=== PATIENT | male | born 1990 | race Caucasian/White ===

== ENCOUNTER 2024-07-11 06:36 | Inpatient (IN) | payer BC ==
[2024-07-07 14:59] LABS: Urine Bacteria None Seen /hpf (None Seen)
[2024-07-07 15:05] LABS: Urine Blood Negative /uL (Negative); Urine Clarity Clear (Clear); Urine Color Yellow (Yellow); Urine Mucus FEW (None Seen); Urine Protein, UAD TRACE (Negative); Urine Specific Gravity 1.033 (1.001-1.035); Urine Squamous Epithelial Cell FEW /hpf (<5); Urine Urobilinogen 3 mg/dL (Negative); Urine WBC 1 /HPF (0-3); Urine pH 5.5 (5.0-9.0)
[2024-07-07 15:06] LABS: Basophils # (auto) 0.1 10 ^3/uL (0-0.2); Basophils % (auto) 1.1 % (0.0-2.0); Eosinophils # (auto) 0.2 10 ^3/uL (0-0.8); Eosinophils % (auto) 3.2 % (0.0-7.0); Hematocrit 44.5 % (41.0-53.0); Hemoglobin 15.3 g/dL (13.5-17.5); Lymphocytes # (auto) 1.6 10 ^3/uL (0.4-5.4); Lymphocytes % (auto) 26.6 % (10.0-50.0); Mean Corpuscular Hemoglobin 29.9 pg (28.0-32.0); Mean Corpuscular Hgb Conc. 34.4 g/dL (32.0-36.0); Mean Corpuscular Volume 86.9 fL (80.0-100.0); Monocytes # (auto) 0.4 10 ^3/uL (0-1.3); Monocytes % (auto) 6.7 % (0.0-12.0); Neutrophils # (auto) 3.7 10 ^3/uL (1.6-8.6); Neutrophils % (auto) 62.4 % (37.0-80.0); Nucleated Red Blood Cells % 0.2 %; Platelet Count (auto) 269 10^3/uL (140-450); Red Blood Cells 5.12 10^6/uL (4.5-5.90); White Blood Cell 5.9 10^3/uL (4.4-10.8)
[2024-07-07 15:20] LABS: INR 1.01 (0.9-1.15); Partial Thromboplastin Time 31.6 SEC (24.5-34.5); Prothrombin Time 10.7 sec (9.3-11.8)
[2024-07-07 15:30] LABS: Alkaline Phosphatase 69 U/L (46-116); Anion Gap 7 (5-15); Aspartate Aminotransferase 22 U/L (13-40); BUN/Creatinine Ratio 9.2 (10.0-20.0); Blood Urea Nitrogen 10 mg/dL (9-23); Calcium 10.4 mg/dL (8.7-10.4); Carbon Dioxide 29 mmol/L (20-31); Chloride 104 mmol/L (98-107); Potassium 3.8 mmol/L (3.5-5.1); Sodium 140 mmol/L (136-145)
[2024-07-07 15:31] LABS: Bilirubin, Total 0.8 mg/dL (0.2-1.0); Total Protein 7.4 g/dL (5.7-8.2)
[2024-07-07 15:36] LABS: Alanine Aminotransferase 51 U/L (7-40); Glucose 135 mg/dL (74-106)
[~2024-07-11] VITALS: Ht 177.8 cm; Wt 100.7 kg
[2024-07-11] MEDS: CIPROFLOXACIN 400MG/200ML 400 ML IV ONE (06:36)
[2024-07-11] MEDS: ceFAZolin 2 GM/D5W100ml 100 ML IV ONE (06:45)
[2024-07-11] MEDS: LIDOCAINE 4MG/ML IV SOLN 500 ML IV ONE (06:48)
[2024-07-11] MEDS: MAGNESIUM SULFATE 1GM/100ML 100 ML IV ONE (06:48)
[2024-07-11] MEDS: ACETAMINOPHEN IV 100 ML IV ONE (06:48)
[2024-07-11] MEDS: GABAPENTIN 400 MG CAP ONE (06:48)
[2024-07-11] MEDS: LIDOCAINE 2%HCL (LOCAL ANESTH.) INJ 10ml MDV ONE (06:48)
[2024-07-11] MEDS: TRANEXAMIC ACID 20 ML ONE (06:50)
[2024-07-11] MEDS ORDERED: LIDOCAINE 2% TOPICAL JELLY 5 ML URJT TOP ONE (06:58)
[2024-07-11] MEDS: GABAPENTIN 400 MG CAP PO ONE (07:00)
[2024-07-11] MEDS: ACETAMINOPHEN IV 1000 MG/100ML (10MG/ML) IV ONE (07:00)
[2024-07-11] MEDS ORDERED: GLYCOPYRROLATE 0.2 MG/ML 1ML VIAL ONE (07:02)
[2024-07-11] MEDS ORDERED: ONDANSETRON HCL 4 MG/2 ML VIAL ONE (07:02)
[2024-07-11] MEDS ORDERED: ROCURONIUM 10MG/ML 10ML VIAL IV ONE (07:02)
[2024-07-11] MEDS ORDERED: PROPOFOL 10 MG/ML 20 ML IV ONE ×2 (07:02→08:41)
[2024-07-11] MEDS ORDERED: DexAMETHasone SOD PHOS 10MG/1ML VIAL INJ ONE (07:02)
[2024-07-11] MEDS ORDERED: KETAMINE 50mg/ML 1ml syringe ONE ×2 (07:05→07:09)
[2024-07-11] MEDS ORDERED: fentaNYL CITRATE 100 MCG/2 ML VL ONE (07:05)
--- NOTE | 2024-07-11 07:35 | DVHHP2 ---
History Allergies: Coded Allergies: NO KNOWN ALLERGIES (Unverified , 07/07/24) Chief Complaint: Cervical stenosis Present Illness(Onset/Duration Patient experiencing neck left shoulder left arm pain shooting radiculopathies weekend hand Noncontributory Past Surgical History: Other (No prior neck surgeries) Exam Exam General Appearance: Normal HEENT: Normal ENT Inspection Neck: Normal Inspection, Other (Neck pain left shoulder pain present) Respiratory: No Accessory Muscle Use, No Respiratory Distress Cardiovascular: No JVD, Other (Skin pink warm and dry) Gastrointestinal: Other (No complaints of abdominal discomfort nausea vomiting or diarrhea) Extremities: Normal capillary refill, Normal inspection, Normal range of motion, Non-tender Neurologic: Alert, No Motor Deficits, Normal Affect Cerebellar Function: Other (No ambulation issues reported) Skin: Normal Color Plan Additional comments: Patient is arrived for elective spine surgery with Dr. Mahad domingo C5-6, artificial disc arthroplasty The patient was informed of the risks and benefits of the procedure. These include but are not limited to complications of anesthesia, postoperative infection, incomplete relief of symptoms, recurrence of symptoms, damage to blood vessels, nerves and tendons, deep venous thrombosis, pulmonary embolism and possible need for repeat surgery in the future. The risks/benefits/alternatives of surgery including but not limited to pain, bleeding, infection, damage to surrounding soft tissue structures, need for r eoperation or future surgery, persistent pain/disability/deformity, bone graft collapse or extrusion of interbody device, instrumentation failure, need for instrumentation removal, dural tear, temporary or permanent nerve root damage, paralysis, stroke, deep vein thrombosis, pulmonary embolism, and any associated anesthetic risk (dry mouth, sore throat, dental damage, myocardial infarction, respiratory depression, blindness) were described to the patient in detail and the patient wishes to proceed. No guarantee of surgical outcome/improvement was implied. All of the questions were answered thoroughly and consents were obtained. We will obtain all the necessary preop tests in order for the patient to be cleared medically. Call with questions Leia Hi [facility] Orthopaedic Spine Surgery nurse practitioner For Dr Ros Domingo Patient was examined, chart reviewed, labs evaluated, and diagnostic studies and findings analyzed. Case was discussed with Dr. Mahad Domingo who formulated the plan of care. This medical document was created using an electronic medical record system with [employer] dictation system. Although this document has been carefully reviewed, there might still be some phonetic and typographical errors. These areas are purely typographical due to imperfections of the software programs, and do not reflect any compromise in the patient's medical care. WELLINGTON HI NP Jul 11, 2024 07:35
--- NOTE | 2024-07-11 07:40 | POSTOP ---
Post-Operative Note Post-Operative Note Preop Diagnosis Cervical stenosis Postop Diagnosis: Cervical Degenerative Disk Disease and Spinal Stenosis Causing incapacitating neck pain, radiculopathy and progressive neurologic deficit Operation performed Procedure: Cervical 5 to 6 anterior cervical discectomy with Cervical 5-6 foraminotomies and facetectomies to decompression the spinal canal and Cervical 6 nerve roots Cervical 5/6 artificial disk arthroplasty with MOBI C device Specimen None Anesthesia: General Anesthesiologist: Jose Mauricio CRNA Blood Loss(fluid mgmt) See anesthesia record Tourniquet Time None Surgeon Dr. Mahad Domingo Production Quality Analyst Abbey Dickerson Implant MOBI C device Complications & Mgmt No complications Additional Remarks Disposition: -Pending -Discharge RX: Abbey Dickerson, ACNPC-AG, REFERRAL RN -Follow up appointment: with Dr Domingo within seven days [phone] [employer] [address] [place] [id number] -Pain: - IV pain meds post op day 1, with PO supplementation, goal is to progress weaning off IV medications and control pain with PO only. morphine 1mg q 4 hours (PAIN 7-10) - P.O. analgesics:Tylenol 650MG (PAIN 1-3) Stella 10/325 mg (PAIN 4-6) - Muscle relaxers scheduled administration. This is a beneficial medications for the incisional pain as it is mostly related to muscle spasms. Flexeril 10 mg TID - Cepacol throat lozenges as needed for sore throat -Antibiotics Operative recommendations: -Postoperative dose:-Post operative antibiotics cefazolin 1 g IV piggyback every 8 hours x 48 hours total of 6 doses -DVT PPX: -Hold all chemical DVT/ blood thinners for 14 days postoperatively -use mechanical DVT PPX such as SCD's, ambulation -Activity: -Pending PT evaluation and patients progression -Sit at side of bed for meals -Goal: Ambulate independently and safely (may use assistive devices if needed) -Brace: - [place] collar for comfort, ambulating or riding in the car -Medical Therapy goals: -Afebrile- Patient may develop a expected post operative fever by day 2-3, this may not be accompanied with a elevation in WBC. if fever develops: Acetaminophen for fever. Albuterol nebulizer Tx every 12 hours for 24 hours to facilitate adequate lung expansion and prevent development of atelectasis. -Euglycemic: bloods sugars under 130mmol/L for optimal healing -Normotensive: Avoid events of hypertension. This helps to keep post operative healing intact and avoids destabilization of beneficial hemostatic coagulation. -Dressings -Anterior cervical patients: Initial surgical dressing may be reinforced if needed. If there is excessive bleeding, leaking, drainage in the bulb drain notify provider -Bowel management: -Colace 100mg bid -Diet: -Clear liquid diet and advance as patient tolerates within dietary limitations ( example: diabetic, Cardiac) -Incentive Spirometer: -10 x hour while awake, RN please educate and observe repeat demonstration, have IS at bedside POD #1 -X-rays: - none indicated at this time -Consults: -Physical Therapy evaluation, treatment recommendations, and discharge recommendations Call with questions eLia Dickerson ACNP- Orthopaedic Spine Surgery nurse practitioner For Dr Ros Domingo Patient was examined, chart reviewed, labs evaluated, and diagnostic studies and findings analyzed. Case was discussed with Dr. Mahad Domingo who formulated the plan of care. This medical document was created using an electronic medical record system with [employer] dictation system. Although this document has been carefully reviewed, there might still be some phonetic and typographical errors. These areas are purely typographical due to imperfections of the software programs, and do not reflect any compromise in the patient's medical care. Date 07/11/24 Time 07:35 ABBEY DICKERSON NP Jul 11, 2024 07:40
[2024-07-11] MEDS ORDERED: SODIUM CHLORIDE LOCK 10 ML ONE ×2 (08:10→08:11)
[2024-07-11] MEDS ORDERED: ePHEDrine SULFATE 50 MG/ML AMP ONE (08:11)
[2024-07-11] MEDS ORDERED: ESMOLOL HCL 10 ML IV ONE (08:58)
[2024-07-11] MEDS ORDERED: ACETAMINOPHEN 325 MG TAB PO PRN (09:15)
[2024-07-11] MEDS ORDERED: NITROGLYCERIN 0.4 MG SL TAB SL PRN (09:15)
[2024-07-11] MEDS ORDERED: MORPHINE SULFATE INJ 2 MG/ml SYRG IV PRN (09:15)
[2024-07-11] MEDS ORDERED: ONDANSETRON HCL 4 MG/2 ML VIAL IV PRN ×2 (09:15→10:00)
[2024-07-11] MEDS ORDERED: SUGAMMADEX 200mg/2ml Vial (100MG/ML) IV ONE (09:15)
--- NOTE | 2024-07-11 09:22 | DVHOP2 ---
Operative Report - 2 Report Details Date: 07/11/24 Preop Diagnosis: cervical spinal stenosis with incapacitating neck pain and radiculopathy/progressive neurologic deficit Postop Diagnosis: same as pre op Surgeon: Mahad Domingo MD Product Safety Technical Assistant: Abbey Hi NP Anesthesiologist: Raymond Mauricio CRNA Anesthesia: General Consent: The patient was informed of the risks and benefits of the procedure. These include but are not limited to complications of anesthesia, postoperative infection, incomplete relief of symptoms, recurrence of symptoms, damage to blood vessels, nerves and tendons, deep venous thrombosis, pulmonary embolism and possible need for repeat surgery in the future. Name of Procedure Performed see detailed note Procedure Details Procedure Details: Pre Op Diagnosis: Cervical Degenerative Disk Disease and Spinal Stenosis Causing incapacitating neck pain, radiculopathy and progressive neurologic deficit Post Op Diagnosis: Cervical Degenerative Disk Disease and Spinal Stenosis Causing incapacitating neck pain, radiculopathy and progressive neurologic deficit Procedure: Cervical 5 to 6 anterior cervical discectomy with Cervical 5-6 foraminotomies and facetectomies to decompression the spinal canal and Cervical 6 nerve roots Cervical 5/6 artificial disk arthroplasty with MOBI C device Microscope for micro dissection Surgeon: Mahad Domingo MD Anesthesia: General Assist: Abbey Hi NP Fluids and EBL: see anesthesia note Procedure Note: The patient was seen in the Pre-anesthesia Care Unit and the site of the incision was initialed by me with a felt tipped marker. All questions by the patient were answered to the satisfaction of the patient and the chart was reviewed. The patient was taken to the operating room and placed supine on the [facility] Flat top table. General anesthesia was induced. Neuromonitoring leads were placed. A rolled towel was placed between the shoulder blades to hyperextend out the chest which will allow better exposure of the cervical spine. Halter traction to 10 pounds was placed. The arms were padded and adducted to the patient's side making sure all pulses in the hands were present. Tape traction was undertaken on the shoulders to give us better radiographic exposure of the distal cervical spine. A gel-pad was placed under the occiput and 5 degrees of extension was placed on the neck without adverse effects to the patient. The anterior neck was prepped and draped. Pre-operative antibiotics were given 30 minutes prior to the start of the procedure. A c-arm fluoroscope was used to jeremias out the incision site. At this time, a time out was taken per usual protocol. Next an incision was made through the skin with a 15 blade scalpel through the subcutaneous tissue down to the platysma. Self-retainers we re placed. The platysma was incised along the longitudinal border with a Metzenbaum scissors. Blunt dissection was made through the deep cervical and pre-tracheal fascia taking care to protect the carotid sheath laterally and the Trachea/esophagus medially. The dissection was carried down to the prevertebral fascia. Any crossing vessels were ligated using a vascular clip or coagulated with a bovie. An esophageal retractor was next used to retract the trachea/esophagus and a bent [address] through the anterior annulus of the cervical disk and a lateral C-arm fluoroscopic image was taken to confirm that we were at the correct level. Next, bovie electrocautery was used to expose the bones cervical 5 and 6 and bipolar electrocautery was used to lift up the Longus colli and capitus muscles. Black-Belt Self Retainers were used to retract the longus colli and capitus muscles bilaterally as well as the trachea/esophagus to the right and the carotid sheath to the left. Smooth thin Black-Belt retractors were placed proximally and distally and a needle was placed again in the anterior annulus of the disk and an image taken to confirm the correct level. At this point, the microscope was wheeled in and an 11 blade scalpel incised the anterior annulus of the cervical cervical 5/6 disks. Next, straight and curved curettes removed the remainder of the disks all the way down to the posterior longitudinal ligament. Carefully, a Kerison number one rongeur inscised the posterior longitudinal ligament at the lateral end of the cervical 5/6disk and using a micro, blunt tip nerve hook to separate the posterior longitudinal ligament from the dura, alternating 1 mm and 2 mm Kerison rongeurs removed the posterior longitudinal ligament. Next, Kerison 1mm and 2 mm rongeurs were alternated to get under the uncinate processes and undercut them to perform foraminotomies and factectomies at cervical 5/6level to decompress the central canal and cervical 6 nerve roots. Next the microscope was wheeled away and the c-arm fluoroscope was wheeled into the field and a lateral image was obtained. Increasing size graft trials were used starting at a 5 mm thick size until the proper tension in the disk space and height church obtained. We then placed a MOBI C deviceat cervical 5/6. Size 17mm wide/ 15mm deep/ 5mm thick. Satisfactory placement was confirmed in the AP and lateral views u sing a C-arm fluoroscope. Copious irrigation of the wound with sterile saline and all bleeding was controlled before closure initiated. At this point, a 10 Welsh round Calos Drain was place deep to the Platysma muscle and the Platysma was approximated with one interrupted 0-Vicryl suture. The subcutaneous tissue was closed with interrupted 2-0 vicryl sutures and the skin was closed with monocryl subcuticular. Sterile dressings were placed and a cervical collar placed, the patient extubated, transferred to the stretcher and taken to the Recovery Room in unremarkable condition. Condition Stable Disposition Still a Patient MAHAD DOMINGO MD Jul 11, 2024 09:22
[2024-07-11 09:37] VITALS: RESP 14; O2SAT 83
[2024-07-11] MEDS ORDERED: ePHEDrine SULFATE 50 MG/ML AMP IV PRN (10:00)
[2024-07-11] MEDS ORDERED: NALOXONE HCL 0.4 MG/ML VIAL IV PRN (10:00)
[2024-07-11] MEDS ORDERED: fentaNYL CITRATE 100 MCG/2 ML VL IV PRN (10:00)
[2024-07-11] MEDS ORDERED: FLUMAZENIL 0.1 MG/ML INJ 10ML MDV IV PRN (10:00)
[2024-07-11] MEDS ORDERED: oxyCODONE HCL 5MG TAB PO PRN (10:00)
[2024-07-11] MEDS: hydrALAZINE HCL 20 MG/ML VL IV PRN (10:31)
[2024-07-11] MEDS: oxyCODONE ER 20 MG TAB PO SCH (10:47)
[2024-07-11] MEDS: oxyCODONE HCL 5MG TAB PO ONE (10:47)
[2024-07-11] MEDS: HYDROmorphone HCL 2 MG/ML VL/or syr IV PRN (10:47)
[2024-07-11] MEDS: LABETALOL HCL 20 MG/4 ML VL IV ONE ×3 (10:55→13:00)
[2024-07-11] MEDS: HYDROcodone-ACET 10/325MG TAB PO PRN (10:59)
[2024-07-11] MEDS: D5W/SOD CHLO 0.9% 1,000 ML IV SCH (11:00)
[2024-07-11 11:43] VITALS: PULSE 108; RESP 18; O2SAT 94
[2024-07-11 13:01] VITALS: BP 154/101; PULSE 108; RESP 19; TEMP 98.1; O2SAT 96
--- NOTE | 2024-07-11 13:03 | DVH ---
C-ARM FLUOROSCOPY: PROCEDURE: cervical disectomy FLUOROSCOPY TIME: 53.3 sec DAP: 10.11 mgy FINDINGS: Spot intraoperative C arm radiographs demonstrating cervical disectomy. IMPRESSION: Please refer to surgical report for detailed findings.
[2024-07-11] MEDS: MORPHINE SULFATE INJ 2 MG/ml SYRG IV PRN (13:06)
[2024-07-11] MEDS: DOCUSATE SOD 100 MG CAP PO SCH (15:29)
[2024-07-11] MEDS: ceFAZolin 1GM/50ML 50 ML IV SCH (15:30)
[2024-07-11] MEDS: CYCLOBENZAPRINE HCL 10 MG TAB PO SCH (15:30)
[2024-07-11 17:00] VITALS: BP 142/99; PULSE 88; RESP 20; TEMP 99.2; O2SAT 93
[2024-07-11 20:00] VITALS: RESP 17; O2SAT 98
[2024-07-11 20:58] VITALS: BP 123/83; PULSE 98; RESP 19; TEMP 98; O2SAT 93
[2024-07-12 01:00] VITALS: BP 124/72; PULSE 84; RESP 20; TEMP 98.2; O2SAT 95
[2024-07-12 05:00] VITALS: BP 100/61; PULSE 79; RESP 20; TEMP 98.1; O2SAT 95
[2024-07-12 08:00] VITALS: PULSE 65; RESP 16; O2SAT 98
[2024-07-12 09:00] VITALS: BP 111/58; PULSE 65; RESP 18; TEMP 98.2; O2SAT 99
--- NOTE | 2024-07-12 10:37 | DVHPN2 ---
Progress Note - Surgical Date Seen: Jul 12, 2024 Post op day Post op day: 1 Subjective Patient reports: No new complaints, Feels better Review of Systems: HEENT:Normal, CVS:Normal, RESPIRATORY:Normal, GI:Abnormal, :Normal, MSK:Normal, NEURO:Abnormal (weakness to his left arm, hand) Objective Vital signs Vital Sign Date Time Temp Pulse Resp B/P (MAP) Pulse Ox O2 Delivery O2 Flow Rate FiO2 07/12/24 09:00 98.2 65 18 111/58 (75) 99 98.2 07/12/24 08:00 Room Air* 0 21 Total Intake and Output 07/11/24 07/11/24 07/12/24 15:00 23:00 07:00 Intake Total 1450 ml 830 ml 900 ml Output Total 2150 ml 1200 ml 1470 ml Balance -700 ml -370 ml -570 ml Medications Current Medications Medications Dose Ordered Sig/Linda Route Start Time Stop Time Status Last Admin Dose Admin Oxycodone HCl 20 mg Q12HR PO 07/11/24 10:00 07/12/24 09:09 20 MG Dextrose/Sodium Chloride 1,000 ml @ 100 mls/hr Q10H IV 07/11/24 09:15 07/12/24 09:12 100 MLS/HR Ondansetron HCl 4 mg Q4HP PRN IV 07/11/24 09:15 Acetaminophen 650 mg Q6HP PRN PO 07/11/24 09:15 Acetaminophen/ Hydrocodone Bitart 1 tab Q6HP PRN PO 07/11/24 09:15 07/12/24 06:19 1 TAB Morphine Sulfate 1 mg Q4HP PRN IV 07/11/24 09:15 07/12/24 02:53 1 MG Cyclobenzaprine HCl 10 mg TID PO 07/11/24 14:00 07/12/24 06:19 10 MG Docusate Sodium 100 mg BID PO 07/11/24 10:00 07/12/24 09:08 100 MG Cefazolin Sodium 50 ml @ 100 mls/hr Q8HR IV 07/11/24 14:00 07/12/24 06:19 100 MLS/HR Nitroglycerin 0.4 mg Q5MINP PRN SL 07/11/24 09:15 Morphine Sulfate 2 mg Q30M PRN IV 07/11/24 09:15 Throat Lozenges 1 zari Q2HP PRN MT 07/12/24 09:45 Laboratory Laboratory Tests 07/07/24 14:43 Test 07/07/24 14:43 Range/Units Serum Glucose 135 H 74-106 mg/dL Examination: GENERAL:Normal, HEENT:Normal, NECK:Normal (drain intact and as ), LUNGS:Normal, CVS:Normal, ABDOMEN:Normal, MSK:Normal (Reports improvement in preoperative symptoms), SKIN:Normal (Anterior neck wound is well approximated with Monocryl suture, drain is intact total drain output over the past 24 hours was 50 cc drain discontinued today with no event), NEURO:Normal (Patient verbalized improvement in bilateral hearing strength radicular symptoms to his left hand are resolved), :Normal Problem List/Assessment/Plan Problems: (1) Muscle spasms of neck (2) Postoperative pain after spinal surgery (3) Cervical stenosis of spinal canal Assessment and Plan Patient progress to discharge, drain was discontinued, patient reports improvement in preoperative symptoms. He is tolerating a meal he is ambulating his pain is well controlled he is cleared for discharge My Orders My Orders Orders - WELLINGTON DICKERSON NP Procedure Category Date Status Time Chest Xray 1 View XY 07/12/24 Taken 09:37 Throat Lozenges PHA 07/12/24 In Process (Cepastat Lozenges) 09:45 Plan discussed with Plan discussed with: Patient, Other (Ty RN) Visit Coding Surgery Date of Service if different f: Jul 12, 2024 Billing Provider: WELLINGTON DICKERSON NP Surgery Visit Codes: NOT BILLABLE WELLINGTON DICKERSON NP Jul 12, 2024 10:37
--- NOTE | 2024-07-12 10:59 | DVH ---
CHEST RADIOGRAPH Indication: Phlegm Technique: Single frontal view of the chest was obtained Comparison: None FINDINGS: Lines and Tubes: None Lungs: No focal consolidation. Pleura: No effusion. No pneumothorax. Cardiomediastinal contours: Unremarkable Bones: No acute osseous abnormality. IMPRESSION: No acute cardiopulmonary disease.
[2024-07-12] MEDS: THROAT LOZENGES(CEPASTAT) MT PRN (11:19)
--- NOTE | 2024-07-12 11:48 | DVHINCON2 ---
Date Seen: Jul 12, [address] PACKER Family History: Cardiovascular disease G8 MOTHER Hypertension G8 FATHER Pacemaker G8 MOTHER Allergies: Coded Allergies: NO KNOWN ALLERGIES (Unverified , 07/07/24) Current Medications Current Medications Medications (Trade) Dose Ordered Sig/Linda Route PRN Reason Start Time Stop Time Status Last Admin Cyclobenzaprine HCl (Flexeril Tablet) 10 mg TID PO 07/11/24 14:00 07/12/24 06:19 Cefazolin Sodium 50 ml @ 100 mls/hr Q8HR IV 07/11/24 14:00 07/12/24 06:19 Throat Lozenges (Cepastat Lozenges) 1 zari Q2HP PRN MT FOR SORE THROAT 07/12/24 09:45 07/12/24 11:19 Vital Signs Vital Signs Date Time Temp Pulse Resp B/P (MAP) Pulse Ox O2 Delivery O2 Flow Rate FiO2 07/12/24 09:00 98.2 65 18 111/58 (75) 99 98.2 07/12/24 08:00 Room Air* 0 21 Labs/Diagnostic Data Labs Test 07/07/24 14:43 Range/Units White Blood Count 5.9 4.4-10.8 10^3/uL Red Blood Count 5.12 4.5-5.90 10^6/uL Hemoglobin 15.3 13.5-17.5 g/dL Hematocrit 44.5 41.0-53.0 % Mean Corpuscular Volume 86.9 80.0-100.0 fL Mean Corpuscular Hemoglobin 29.9 28.0-32.0 pg Mean Corpuscular Hemoglobin Concent 34.4 32.0-36.0 g/dL Red Cell Distribution Width 13.0 11.8-14.3 % Platelet Count 269 140-450 10^3/uL Mean Platelet Volume 7.6 6.9-10.8 fL Neutrophils (%) (Auto) 62.4 37.0-80.0 % Lymphocytes (%) (Auto) 26.6 10.0-50.0 % Monocytes (%) (Auto) 6.7 0.0-12.0 % Eosinophils (%) (Auto) 3.2 0.0-7.0 % Basophils (%) (Auto) 1.1 0.0-2.0 % Neutrophils # (Auto) 3.7 1.6-8.6 10 ^3/uL Lymphocytes # (Auto) 1.6 0.4-5.4 10 ^3/uL Monocytes # (Auto) 0.4 0-1.3 10 ^3/uL Eosinophils # (Auto) 0.2 0-0.8 10 ^3/uL Basophils # (Auto) 0.1 0-0.2 10 ^3/uL Nucleated Red Blood Cells 0.2 % Prothrombin Time 10.7 9.3-11.8 sec Prothrombin Time INR 1.01 0.9-1.15 Activated Partial Thromboplast Time 31.6 24.5-34.5 SEC Urine Color Yellow Yellow Urine Clarity Clear Clear Urine pH 5.5 5.0-9.0 Urine Specific [place] 1.033 1.001-1.035 Urine Protein Trace H Negative Urine Ketones 2+ H Negative Urine Blood Negative Negative /uL Urine Nitrite Negative Negative Urine Bilirubin Negative Negative Urine Urobilinogen 3 H Negative mg/dL Urine Leukocyte Esterase Negative Negative /uL Urine RBC 3 0 - 3 /hpf Urine Microscopic WBC 1 0-3 /HPF Urine Squamous Epithelial Cells Few <5 /hpf Urine Bacteria None seen None Seen /hpf Urine Mucus Few None Seen Urine Glucose Normal Normal mg/dL Sodium Level 140 136-145 mmol/L Potassium Level 3.8 3.5-5.1 mmol/L Chloride Level 104 98-107 mmol/L Carbon Dioxide Level 29 20-31 mmol/L Anion Gap 7 5-15 Blood Urea Nitrogen 10 9-23 mg/dL Creatinine 1.09 0.700-1.30 mg/dL Glomerular Filtration Rate Calc 91 >90 mL/min BUN/Creatinine Ratio 9.2 L 10.0-20.0 Serum Glucose 135 H 74-106 mg/dL Calcium Level 10.4 8.7-10.4 mg/dL Total Bilirubin 0.8 0.2-1.0 mg/dL Aspartate Amino Transferase (AST) 22 13-40 U/L Alanine Aminotransferase (ALT) 51 H 7-40 U/L Alkaline Phosphatase 69 46-116 U/L Total Protein 7.4 5.7-8.2 g/dL Albumin 5.0 H 3.2-4.8 g/dL Assessment SEE DICTATED NOTE Plan discussed with: Patient Date of Service: Jul 12, 2024 Billing Provider: CARLOS AN MD Common Visit Codes: 20002-MONFXAR INP/OBS CARE (HIGH) CARLOS AN MD Jul 12, 2024 11:48
[2024-07-12 11:56] VITALS: BP 111/58; PULSE 65; RESP 18; TEMP 98.2; O2SAT 99
[2024-07-12] MEDS ORDERED: CYCL-611 PO (11:56)
[2024-07-12] MEDS ORDERED: OXY20CRT PO (11:56)
--- NOTE | 2024-07-12 12:00 | DVHDS2 ---
ASSESSMENT ASSESSMENT Hospital Course The patient arrived for a elective spine surgery with Dr. DOMINGO. Surgery went as planned with no complications. After a short stay in the PACU patient was admitted to the hospital for postoperative care and pain management over the course of 1 postoperative days the patient was able to tolerate a diet, ambulate independently, the pain has been managed with oral analgesics. The surgical site is well-approximated with sutures, some residual drainage continues from drain insertion sites after removal, however it is manageable with daily wound care and dressing changes. Some improvement to preoperative symptoms of extremities, strength and motion. There is new post operative pain that is localized to the surgical site. The patient will follow-up with Dr. Domingo for wound check and suture check. The patient may use [place] J collar for comfort and while mobilizing. Assessment Cervical Degenerative Disk Disease and Spinal Stenosis Causingincapacitating neck pain, radiculopathy and progressive neurologic deficit Problems: (1) Postoperative pain after spinal surgery Assessments: Medication sent to patient's preferred pharmacy (2) Muscle spasms of neck Assessments: Medication sent to patient's preferred pharmacy WELLINGTON DICKERSON NP Jul 12, 2024 12:00
--- NOTE | 2024-07-12 12:02 | DVHINCON2 ---
HISTORY OF PRESENT ILLNESS: The patient is a 34-year-old gentleman who is admitted after he underwent surgery on the cervical spine for radiculopathy. The patient, at this time, denies any significant pain. No chest pain, shortness of breath. No focal deficit. Review of rest of systems are otherwise currently negative. PAST MEDICAL HISTORY: No significant illness in the past. MEDICATIONS: He takes no medications on a regular basis. ALLERGIES: No known drug allergies. SOCIAL HISTORY: Denies smoking. Has history of alcohol intake. FAMILY HISTORY: Negative. PHYSICAL EXAMINATION: GENERAL: The patient is awake, alert. VITAL SIGNS: Temperature of 98.2, pulse 65 per minute, blood pressure 111/58. SHEENT: Unremarkable. There is no JVD, no pedal edema. LUNGS: Equal bilaterally. No added sounds. CARDIOVASCULAR SYSTEM: S1, S2 is regular, no murmurs. ABDOMEN: Soft. There is no organomegaly. NEUROLOGIC: nonfocal. MUSCULOSKELETAL: There is a dressing at the site of the neck surgery. ASSESSMENT AND PLAN: * Obesity. * Status post cervical spine surgery for cervical radiculopathy. The patient will be placed on pain medications as well as have physical therapy. The patient postoperatively to be managed by Dr. Domingo. MD YULIA Rand/GIANLUCA TID: [id number] RECEIPT: [id number]
--- NOTE | 2024-07-12 12:06 | DVHDS2 ---
Discharge Summary Date of Admission Jul 11, 2024 at 09:14 Date of Discharge: Jul 12, 2024 Admitting Diagnosis Cervical stenosis with neurogenic claudication Wounds: Left anterior neck wound well approximated with Monocryl sutures Labs/Diagnostic Data: Laboratory Results Test 07/07/24 14:43 White Blood Count 5.9 10^3/uL (4.4-10.8) Red Blood Count 5.12 10^6/uL (4.5-5.90) Hemoglobin 15.3 g/dL (13.5-17.5) Hematocrit 44.5 % (41.0-53.0) Mean Corpuscular Volume 86.9 fL (80.0-100.0) Mean Corpuscular Hemoglobin 29.9 pg (28.0-32.0) Mean Corpuscular Hemoglobin Concent 34.4 g/dL (32.0-36.0) Red Cell Distribution Width 13.0 % (11.8-14.3) Platelet Count 269 10^3/uL (140-450) Mean Platelet Volume 7.6 fL (6.9-10.8) Neutrophils (%) (Auto) 62.4 % (37.0-80.0) Lymphocytes (%) (Auto) 26.6 % (10.0-50.0) Monocytes (%) (Auto) 6.7 % (0.0-12.0) Eosinophils (%) (Auto) 3.2 % (0.0-7.0) Basophils (%) (Auto) 1.1 % (0.0-2.0) Neutrophils # (Auto) 3.7 10 ^3/uL (1.6-8.6) Lymphocytes # (Auto) 1.6 10 ^3/uL (0.4-5.4) Monocytes # (Auto) 0.4 10 ^3/uL (0-1.3) Eosinophils # (Auto) 0.2 10 ^3/uL (0-0.8) Basophils # (Auto) 0.1 10 ^3/uL (0-0.2) Nucleated Red Blood Cells 0.2 % Prothrombin Time 10.7 sec (9.3-11.8) Prothrombin Time INR 1.01 (0.9-1.15) Activated Partial Thromboplast Time 31.6 SEC (24.5-34.5) Urine Color Yellow (Yellow) Urine Clarity Clear (Clear) Urine pH 5.5 (5.0-9.0) Urine Specific [place] 1.033 (1.001-1.035) Urine Protein Trace (Negative) Urine Ketones 2+ (Negative) Urine Blood Negative /uL (Negative) Urine Nitrite Negative (Negative) Urine Bilirubin Negative (Negative) Urine Urobilinogen 3 mg/dL (Negative) Urine Leukocyte Esterase Negative /uL (Negative) Urine RBC 3 /hpf (0 - 3) Urine Microscopic WBC 1 /HPF (0-3) Urine Squamous Epithelial Cells Few /hpf (<5) Urine Bacteria None seen /hpf (None Seen) Urine Mucus Few (None Seen) Urine Glucose Normal mg/dL (Normal) Sodium Level 140 mmol/L (136-145) Potassium Level 3.8 mmol/L (3.5-5.1) Chloride Level 104 mmol/L (98-107) Carbon Dioxide Level 29 mmol/L (20-31) Anion Gap 7 (5-15) Blood Urea Nitrogen 10 mg/dL (9-23) Creatinine 1.09 mg/dL (0.700-1.30) Glomerular Filtration Rate Calc 91 mL/min (>90) BUN/Creatinine Ratio 9.2 (10.0-20.0) Serum Glucose 135 mg/dL (74-106) Calcium Level 10.4 mg/dL (8.7-10.4) Total Bilirubin 0.8 mg/dL (0.2-1.0) Aspartate Amino Transferase (AST) 22 U/L (13-40) Alanine Aminotransferase (ALT) 51 U/L (7-40) Alkaline Phosphatase 69 U/L (46-116) Total Protein 7.4 g/dL (5.7-8.2) Albumin 5.0 g/dL (3.2-4.8) Other Laboratory Tests 07/07/24 14:43 Brief Hx & Hospital Course: The patient arrived for a elective spine surgery with Dr. DOMINGO. Surgery went as planned with no complications. After a short stay in the PACU patient was admitted to the hospital for postoperative care and pain management over the course of 1 postoperative days the patient was able to tolerate a diet, ambulate independently, the pain has been managed with oral analgesics. The surgical site is well-approximated with sutures, some residual drainage continues from drain insertion sites after removal, however it is manageable with daily wound care and dressing changes. Some improvement to preoperative symptoms of extremities, strength and motion. There is new post operative pain that is localized to the surgical site. The patient will follow-up with Dr. Domingo for wound check and suture check. The patient may use Alden J collar for comfort and while mobilizing. Operations or Procedures Procedure: Cervical 5 to 6 anterior cervical discectomy with Cervical 5-6 foraminotomies and facetectomies to decompression the spinal canal and Cervical 6 nerve roots Cervical 5/6 artificial disk arthroplasty with MOBI C device Condition at Discharge: Good Final Diagnosis/Problems List Cervical Degenerative Disk Disease and Spinal Stenosis Causing incapacitating neck pain, radiculopathy and progressive neurologic deficit Problems List: (1) Cervical stenosis of spinal canal Status: Resolved (2) Muscle spasms of neck Status: Acute (3) Postoperative pain after spinal surgery Status: Acute Discharge Disposition: Home Discharge Instruct/Medications Diet: Regular Diet comment: Regular diet Activity: Light activity Activity comment: Continue to turn a move your neck in normal fashion, pay attention to any sticking points or stiffness, move slowly. Follow Up/Referral: Call [phone] for a appointment in seven days [id number] [place] [address], [address], [place] [id number] Medications: Medications were sent to your pharmacy of choice New Medications: Hydrocodone-Acetaminophen (Hydrocodone/Acetaminophen 7.5-325 mg) 1 Tab Tab 2 TAB PO Q6HPRN PRN for 10 Days, #80 TAB Hydrocodone-Acetaminophen (Hydrocodone/Acetaminophen 7.5-325 mg) 1 Tab Tab 2 TAB PO Q6HPRN PRN for 10 Days, #80 TAB Cyclobenzaprine HCl (Cyclobenzaprine Hydrochlo) 10 Mg Tab 10 MG PO TID for 10 Days, #30 TAB 25 Discharge Statement: "Patient was advised to return to the ER or call 911 if any headaches, dizziness, shortness of breath, chest pain, abdominal pain, bleeding, fevers, or worsening of medical condition. Patient was counseled about treatment plan, medications, possible side effects, patientverbalized understanding. All questions were answered to the best of my ability. This discharge took greater then 30 minutes in planning, reviewing documentation, counseling the patient, and discussing with other team members." ASSESSMENT ASSESSMENT Hospital Course The patient arrived for a elective spine surgery with Dr. DOMINGO. Surgery went as planned with no complications. After a short stay in the PACU patient was admitted to the hospital for postoperative care and pain management over the course of 1 postoperative days the patient was able to tolerate a diet, ambulate independently, the pain has been managed with oral analgesics. The surgical site is well-approximated with sutures, some residual drainage continues from drain insertion sites after removal, however it is manageable with daily wound care and dressing changes. Some improvement to preoperative symptoms of extremities, strength and motion. There is new post operative pain that is localized to the surgical site. The patient will follow-up with Dr. Domingo for wound check and suture check. The patient may use Alden J collar for comfort and while mobilizing. Assessment Medication sent to patient's preferred pharmacy Problems: (1) Postoperative pain after spinal surgery Assessments: Medication sent to patient's preferred pharmacy (2) Muscle spasms of neck Assessments: Medication sent to patient's preferred pharmacy WELLINGTON DICKERSON NP Jul 12, 2024 12:06
[2024-07-12] MEDS ORDERED: HYDR-4069 PO ×2 (12:43)
== END 2024-07-12 13:30 | disposition home or self-care (01) | DRG 518 ==
LOC: SUR 06:36 → OVERFLOW 09:14 → WEST WING 11:35
PROVIDERS: ADMIT Internal Medicine; ATTEND Internal Medicine
PROC: 00NW0ZZ Release Cervical Spinal Cord, Open Approach (ICD-10-PCS; 2024-07-11)
PROC: 0RB30ZZ Excision of Cervical Vertebral Disc, Open Approach (ICD-10-PCS; 2024-07-11)
PROC: 01N10ZZ Release Cervical Nerve, Open Approach (ICD-10-PCS; 2024-07-11)
PROC: 4A11X4G Monitoring of Peripheral Nervous Electrical Activity, Intraoperative, External Approach (ICD-10-PCS; 2024-07-11)
PROC: 0RR30JZ Replacement of Cervical Vertebral Disc with Synthetic Substitute, Open Approach (ICD-10-PCS; principal; 2024-07-11 07:33)
DX: M48.02 Spinal stenosis, cervical region (principal); M54.12 Radiculopathy, cervical region; E66.9 Obesity, unspecified; M50.322 Other cervical disc degeneration at C5-C6 level; Z82.49 Family history of ischemic heart disease and other diseases of the circulatory system; Z79.899 Other long term (current) drug therapy; Z68.29 Body mass index [BMI] 29.0-29.9, adult; Z79.891 Long term (current) use of opiate analgesic
CPT/HCPCS: 36415; 71045; 72040; 76000; 80053; 81001; 85025; 85610; 85730; 86850; 86900; 86901; 97163; G0378; J0131; J1100; J2003; J2405; J2704